=== PATIENT | female | born 1980 | race Caucasian/White ===

== ENCOUNTER 2018-02-03 22:28 | Emergency (ER) | payer MEDICARE, OTHER ==
[~2018-02-03] VITALS: Ht 170.2 cm; Wt 53.0 kg
[2018-02-03 22:37] VITALS: BP 119/87
[2018-02-03] MEDS ORDERED: HYDROcodone/acetaminophen 5mg/325mg tablet PO ONE (22:50)
[2018-02-04] MEDS ORDERED: ketorolac tromethamine 15mg/ml inj. IM ONE (00:15)
[2018-02-04] MEDS ORDERED: ondansetron 4mg rapidly disintigrating tab PO ONE (00:15)
[2018-02-04] MEDS ORDERED: morphine 4 MG/ML inj SYRINge IM ONE (00:15)
[2018-02-04] MEDS ORDERED: BUPIVAcaine/PF 2.5 mg/ml (0.25%) 30ml vial IJ ONE ×2 (00:15→00:20)
[2018-02-04] MEDS ORDERED: HYDROcodone/acetaminophen 5mg/325mg tablet PO ONE (01:40)
[2018-02-04] MEDS ORDERED: IBUP-1986 PO (01:42)
[2018-02-04] MEDS ORDERED: ACET-2615 PO (01:42)
[2018-02-04] MEDS ORDERED: HYDR-3965 PO (01:42)
== END 2018-02-04 02:50 | disposition home or self-care (01) ==
LOC: ER 22:28
DX: S42.211A Unspecified displaced fracture of surgical neck of right humerus, initial encounter for closed fracture (principal); Z79.899 Other long term (current) drug therapy; W18.39XA Other fall on same level, initial encounter; Y93.89 Activity, other specified; Y92.89 Other specified places as the place of occurrence of the external cause; Y99.8 Other external cause status
CPT/HCPCS: 29105; 73030; 96372; 99284; A4565; J1885; J2270; J3490